=== PATIENT | female | born 1985 | race Caucasian/White ===

== ENCOUNTER 2016-05-22 10:52 | Emergency (ER) | payer OTHER ==
[2016-05-22 10:57] VITALS: BP 132/89; PULSE 99; TEMP 98
--- NOTE | 2016-05-22 11:38 | PDOC ---
History of Present Illness - General Chief Complaint: Injury Stated Complaint: RT EYELID LACERATION Time Seen by Provider: 05/22/16 11:02 - History of Present Illness Initial Comments: 05/22/16 11:49 Chief complaint: Laceration History of present illness: Patient was bending over and struck her forehead. No loss of consciousness. Sustained laceration with bleeding over right lateral superior orbital rim. No loss of consciousness. No headache. No visual or focal neurologic symptoms Past medical history: Healthy female, no active medical or surgical problems Physical exam: Alert and oriented well-developed well-nourished no acute distress cheerful and cooperative Afebrile, vital signs normal No visible or palpable trauma to the head other than the right orbital rim. There is a 1 cm superficial laceration involving the skin only. Edges are slightly distracted. There is no deformity of the bone of the orbit and no hematoma or appreciable swelling The pupil is 4 mm, round and reactive to light and accommodation. The fundus is well-visualized, and normal in appearance, with good central venous pulsations and sharp disc margins. Conjunctiva and cornea are clear. EOMs are full without diplopia. ENT clear Neck supple without bruit mass or nodes. No tenderness or deformity Lungs clear CV regular without murmur rub or gallop Abdomen benign Neurological C2 to 12 intact. Strength full and symmetric. No focal sensory or motor deficits. Cerebellar intact. Gait stable and unimpaired. Impression: Minor head injury, no sign of significant intracranial trauma, superficial laceration right forehead Plan: Laceration repair, head injury instructions, and follow-up. Past History - Past Medical History Allergies/Adverse Reactions: Allergies Allergy/AdvReac Type Severity Reaction Status Date / Time nickel Allergy Verified 05/22/16 10:54 Home Medications: Ambulatory Orders Ibuprofen 600 mg PO QID PRN #20 tablet 05/22/16 - Psycho/Social/Smoking Cessation Hx Anxiety: No Suicidal Ideation: No Smoking History: Never smoked Hx Alcohol Use: No Drug/Substance Use Hx: No *Physical Exam - Vital Signs Last Vital Signs Temp Pulse Resp BP Pulse Ox 98 F 99 H 18 132/89 100 05/22/16 10:52 05/22/16 10:52 05/22/16 10:52 05/22/16 10:52 05/22/16 10:52 Medical Decision Making - Medical Decision Making 05/22/16 11:55 Procedure note: Repair of laceration Wound was thoroughly scrubbed and irrigated with normal saline Wound edges were approximated with Dermabond skin adhesive with good adhesion. Care was taken to avoid the eye. Wound instructions are given and patient was instructed to follow-up as directed. Fully ambulatory and in no pain or other distress upon discharge to follow-up as directed *DC/Admit/Observation/Transfer Diagnosis at time of Disposition: Facial laceration Qualifiers: Encounter type: initial encounter Qualified Code(s): S01.81XA - Laceration without foreign body of other part of head, initial encounter Injury of head Qualifiers: Encounter type: initial encounter Qualified Code(s): S09.90XA - Unspecified injury of head, initial encounter - Discharge Dispostion Disposition: HOME Condition at time of disposition: Improved Admit: No - Prescriptions Prescriptions: Ibuprofen 600 mg PO QID PRN #20 tablet PRN Reason: Pain - Patient Instructions Printed Discharge Instructions: DI for Laceration Repair With Dermabond, DI for Closed Head Injury
[2016-05-22] MEDS ORDERED: IBUPROFEN 600 MG TABLET (FP) PO ONE ×2 (11:39→11:42)
== END 2016-05-22 11:45 | disposition home or self-care (01) ==
LOC: FER 10:52
PROC: 0HQ1XZZ Repair Face Skin, External Approach (ICD-10-PCS; principal; 2016-05-22)
DX: S01.81XA Laceration without foreign body of other part of head, initial encounter (principal); S09.90XA Unspecified injury of head, initial encounter; W22.8XXA Striking against or struck by other objects, initial encounter; Y93.89 Activity, other specified; Y92.9 Unspecified place or not applicable
CPT/HCPCS: 12011-25; 99284-25